=== PATIENT | male | born 1975 | race Caucasian/White ===

== ENCOUNTER 2017-08-06 09:12 | Emergency (ER) | payer MEDICAID, MEDICARE ==
--- NOTE | 2017-08-06 09:19 | ED ---
Back Pain - HPI Summary HPI Summary: 42 year old male presents with complains of back injury at work. He was seen in the ED and told he had a bulging disc. He has a referral to [facility] orthopedics in [place] and just needs a work note. - History of Current Complaint Stated Complaint: BACK INJURY Time Seen by Provider: 08/06/17 09:19 Hx Obtained From: Patient Onset/Duration: Sudden Onset Onset/Duration: Started Days Ago Timing: Constant Severity Initially: Moderate Severity Currently: Moderate - Allergies/Home Medications Allergies/Adverse Reactions: Allergies Allergy/AdvReac Type Severity Reaction Status Date / Time No Known Allergies Allergy Verified 08/06/17 09:23 Home Medications: Home Medications HYDROcodone/ACETAMIN 5-325 MG* [[place] 5-325 TAB*] 1 tab PO Q6H PRN 08/06/17 [ History Confirmed 08/06/17] Naproxen TAB* [Naprosyn 250 mg TAB*] 500 mg PO Q8H PRN 08/06/17 [History Confirmed 08/06/17] PMH/Surg Hx/FS Hx/Imm Hx Previously Healthy: Yes Endocrine/Hematology History: Denies: Hx Diabetes Cardiovascular History: Denies: Hx Hypertension, Hx Pacemaker/ICD History: Denies: Hx Renal Disease Sensory History: Denies: Hx Hearing Aid Psychiatric History: Denies: Hx Panic Disorder - Surgical History Surgery Procedure, Year, and Place: RIGHT hip replacement 01/2006; R knee SC[place] - Social History Alcohol Use: None Substance Use Type: Reports: None Smoking Status (MU): Former Smoker Review of Systems Constitutional: Negative Eyes: Negative ENT: Negative Cardiovascular: Negative Respiratory: Negative Gastrointestinal: Negative Genitourinary: Negative Positive: Other - back pain All Other Systems Reviewed And Are Negative: Yes Physical Exam Triage Information Reviewed: Yes Vital Signs Reviewed: Yes Appearance: Positive: Pain Distress Skin: Positive: Warm Eyes: Positive: Normal ENT: Positive: Normal ENT inspection Neck: Positive: Supple Respiratory/Lung Sounds: Positive: Clear to Auscultation Cardiovascular: Positive: Normal Abdomen Description: Positive: Nontender Musculoskeletal: Positive: Other - lower back pain Back Pain Course/Dx - Diagnoses Provider Diagnoses: Back pain Discharge - Discharge Plan Condition: Stable Disposition: HOME Prescriptions: Methocarbamol TAB* [Robaxin 500 MG TAB*] 500 mg PO TID PRN #30 tab PRN Reason: Pain Naproxen [Naproxen 500 mg] 500 mg PO Q8H PRN #30 tab PRN Reason: Pain Patient Education Materials: Low Back Strain (ED) Forms: *Work Release Referrals: Danii De Paz MD [Medical Doctor] - Additional Instructions: please f/u [facility] appointment
[2017-08-06 09:32] VITALS: BP 134/81
== END 2017-08-06 10:00 | disposition home or self-care (01) ==
LOC: UCCORT 09:12
DX: M54.9 Dorsalgia, unspecified (principal); Z87.891 Personal history of nicotine dependence
CPT/HCPCS: 99212; G0463

== ENCOUNTER 2017-08-30 10:42 | Emergency (ER) | payer OTHER ==
--- OUTSIDE RECORDS SUMMARY | 2017-08-30 11:08 | XMS REPORT ---
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 Unavailable Fariha Loza MD Primary Care Physician Unavailable Payers Type Date Identification Numbers Payment Provider Subscriber Commercial Policy Number: [id number] [employer] [place] [employer] Chris Whiting PayID: [id number] [address] [place] [address] Medicaid Policy Number: [id number] Medicaid Chris Whiting PayID: [id number] [address] [place] [address] Problems Description No Information Family History Date Family Member(s) Problem(s) Comments Father Diabetes Father Heart Disease Mother Heart Disease Mother Diabetes Social History Type Date Description Comments Cigarette Use Quit 19 Years Ago ETOH Use Rare Use Of Alcohol Recreational Drug Use Never Used Drugs Allergies, Adverse Reactions, Alerts Date Description Reaction Status Severity Comments 08/07/2017 NKDA active Medications Medication Date Status Form Strength Qnty SIG Indications Ordering Provider Ventolin HFA Active Aerosol 108(90Base) 2 puffs Unknown 00 mcg/Act every 4 hours as needed only Flovent HFA Active Aerosol Unknown 00 Vital Signs Date Vital Result Comment 08/07/2017 Weight 236.50 lb Height 69 inches 5'9" BMI (Body Mass Index) 34.9 kg/m2 BP Systolic 110 mmHg BP Diastolic 72 mmHg Heart Rate 68 /min O2 % BldC Oximetry 99 % Body Temperature 98.1 F Regina Score 17 Neck Circumference in inches 16.25 Pain Level 0 Results Description No Information Procedures Description No Information Plan of Care No Information Available
[2017-08-30 11:22] VITALS: BP 136/60
--- NOTE | 2017-08-30 11:35 | UC ---
Back Pain HPI - HPI Summary HPI Summary: Pt has history of back injury on 08/04/17 and has been seen by PCP, [facility], orthopedic provider and Dr. Dipika Jerry. Pt was given diagnosis of herniated sacral disc. Pt denies any recent injury or trauma but states as he was riding in car this morning pain in low back pain has worsened and now c/o bilateral radiating pain and numbness bilateral posterior legs. Pt has not taken any of the prescribed medications today. - History of Current Complaint Chief Complaint: UCBackPain Stated Complaint: BACK PAIN Time Seen by Provider: 08/30/17 11:12 Hx Obtained From: Patient Onset/Duration: Sudden Onset Timing: Constant Severity Initially: Moderate Severity Currently: Moderate Back Pain: Radiates To - bilateral posterior legs Character: Dull, Aching, Burning Aggravating Factor(s): Movement, Lifting, Bending, Walking Alleviating Factor(s): Nothing Associated Signs And Symptoms: Positive: Numbness, Tingling Related History: Similar Episode Dx As - herniated disc - Risk Factors AAA Risk Factors: Negative TAD Risk Factors: Negative Cauda Equina Risk Factors: Negative Epidural Abscess Risk Factors: Negative - Allergies/Home Medications Allergies/Adverse Reactions: Allergies Allergy/AdvReac Type Severity Reaction Status Date / Time No Known Allergies Allergy Verified 08/06/17 09:23 Home Medications: Home Medications Albuterol HFA INHALER* [Ventolin HFA Inhaler*] 1 - 2 puff INH Q4H PRN 08/30/17 [ History Confirmed 08/30/17] Fluticasone HFA 110 mcg(NF) [Flovent HFA 110 mcg(NF)] 2 puff INH BID 08/30/17 [ History Confirmed 08/30/17] PMH/Surg Hx/FS Hx/Imm Hx Previously Healthy: Yes - Surgical History Surgical History: Yes Surgery Procedure, Year, and Place: Right [place], 2006, [place] - Family History Known Family History: Positive: Cardiac Disease - Social History Occupation: Unemployed Lives: With Family Alcohol Use: Occasionally Substance Use Type: None Smoking Status (MU): Former Smoker Length of Time of Smoking/Using Tobacco: 2 1/2 PPD x 11 Years Have You Smoked in the Last Year: No When Did the Patient Quit Smoking/Using Tobacco: 1997 - Immunization History Most Recent Influenza Vaccination: Not the Season Review of Systems Constitutional: Negative Skin: Negative Eyes: Negative ENT: Negative Respiratory: Negative Cardiovascular: Negative Gastrointestinal: Negative Genitourinary: Negative Motor: Decreased ROM - low bacfk Neurovascular: Negative Musculoskeletal: Decreased ROM - low back, Myalgia Neurological: Negative Psychological: Negative Is Patient Immunocompromised?: No All Other Systems Reviewed And Are Negative: Yes Physical Exam Triage Information Reviewed: Yes Appearance: Pain Distress, Other: - unkempt Vital Signs: Initial Vital Signs Temp 97.9 F 08/30/17 11:09 Pulse 80 08/30/17 11:09 Resp 18 08/30/17 11:09 BP 136/60 08/30/17 11:09 Pulse Ox 99 08/30/17 11:09 Vital Signs Reviewed: Yes Eye Exam: Normal ENT Exam: Normal Neck exam: Normal Respiratory Exam: Normal Cardiovascular Exam: Normal Musculoskeletal Exam: Other Musculoskeletal: Positive: ROM Limited @ - low back Neurological Exam: Normal Neurological: Positive: Other: - hyperreflexes bilateral patella Psychological Exam: Normal Skin Exam: Normal Back Pain Course/Dx - Differential Dx/Diagnosis Differential Diagnosis/HQI/PQRI: Cauda Equina Syndrome, Epidural Abscess, Herniated Disc Provider Diagnoses: worsening of herniated disc? sciatica. Pt was advised to go to Emergency Room immediately. Discharge - Discharge Plan Condition: Stable Disposition: HOME Prescriptions: predniSONE TAB* [Deltasone TAB*] 40 mg PO DAILY #8 tab Patient Education Materials: Sciatica (ED), Lumbar Radiculopathy (ED) Referrals: RONALD Carlson [Primary Care Provider] - If Needed Additional Instructions: It is recommended that if your symptoms do not improve with the medications provided for you at first onset of injury and with the subsequent follow up visit, that you seek care at the closest Emergency Room.
[2017-08-30] MEDS ORDERED: predniSONE TAB* 20 MG PO ONE (11:38)
== END 2017-08-30 11:59 | disposition home or self-care (01) ==
LOC: UCCORT 10:42
DX: M54.9 Dorsalgia, unspecified (principal); M53.3 Sacrococcygeal disorders, not elsewhere classified; Z96.641 Presence of right artificial hip joint; Z98.1 Arthrodesis status; Z87.891 Personal history of nicotine dependence
CPT/HCPCS: 99212; G0463; J7512

== ENCOUNTER 2018-06-12 12:58 | Emergency (ER) | payer SELFPAY ==
[2018-06-12 13:19] VITALS: BP 124/60
[2018-06-12] MEDS ORDERED: Ibuprofen TAB* 800 MG PO ONE (14:49)
--- NOTE | 2018-06-12 14:53 | UC ---
Lower Extremity/Ankle HPI - HPI Summary HPI Summary: slipped on wet floor at [facility] about 3 hours ago, feeling pop in right knee and right hip, with moderately severe pain following, in the right groin and knee. Difficulty with weight bearing. No analgesics used. He is one month post right knee arthroscopy and 12 years post right hip replacement. - History of Current Complaint Chief Complaint: UCLowerExtremity Stated Complaint: S/P FALL RIGHT KNEE/HIP Time Seen by Provider: 06/12/18 14:40 Hx Obtained From: Patient Onset/Duration: Sudden Onset, Lasting Hours Severity Initially: Moderate Severity Currently: Moderate Pain Intensity: 8 Aggravating Factor(s): Standing, Ambulation Alleviating Factor(s): Rest Able to Bear Weight: Yes - Risk Factors Gout Risk Factors: Obesity - Allergies/Home Medications Allergies/Adverse Reactions: Allergies Allergy/AdvReac Type Severity Reaction Status Date / Time cefazolin [From Ancef] Allergy Severe Swelling Verified 06/12/18 13:15 Of Face,Lips,& Throat cephalexin [From Keflex] Allergy Severe Swelling Verified 06/12/18 13:15 Of Face,Lips,& Throat Home Medications: Home Medications Ketoconazole 2 % CREAM (NF) [Nizoral 2% CREAM (NF)] 1 applic TOPICAL DAILY 06/12 [History Confirmed 06/12/18] PMH/Surg Hx/FS Hx/Imm Hx - Additional Past Medical History Additional PMH: morbid obesity - Surgical History Surgical History: Yes Surgery Procedure, Year, and Place: Right [place], 2006, [place]. 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 Lives: With Family Alcohol Use: None Substance Use Type: None Smoking Status (MU): Former Smoker Length of Time of Smoking/Using Tobacco: 2 1/2 PPD x 11 Years Have You Smoked in the Last Year: No When Did the Patient Quit Smoking/Using Tobacco: 1997 - Immunization History Most Recent Influenza Vaccination: Not the 2017/2017 Season Review of Systems Musculoskeletal: Arthralgia, Myalgia Neurological: Numbness - has some paresthesias right lateral thigh Is Patient Immunocompromised?: No All Other Systems Reviewed And Are Negative: Yes Physical Exam Triage Information Reviewed: Yes Appearance: Pain Distress - moderate, seated in wheelchair., Obese Vital Signs: Initial Vital Signs Temp 97.7 F 06/12/18 13:08 Pulse 81 06/12/18 13:08 Resp 18 06/12/18 13:08 BP 124/60 06/12/18 13:08 Pulse Ox 99 06/12/18 13:08 Respiratory: Positive: Lungs clear, Normal breath sounds Cardiovascular: Positive: RRR, No Murmur Musculoskeletal: Positive: ROM Limited @ - right knee with limited flexion, small effusion Neurological: Positive: Alert, Muscle Tone Normal Diagnostics - Laboratory Diagnostic Studies Completed/Ordered: xray right knee normal per , mild degenerative change per Dr. Ohara. xray right hip with normal prosthesis per . No hardware failure per Dr. Granados. Lower Extremity Course/Dx - Course Course Of Treatment: rest, ice, nsaid's for pain. Follow up with ortho if not seeing improvement in 3 to 4 days. - Differential Dx/Diagnosis Differential Diagnosis/HQI/PQRI: Sprain, Strain Provider Diagnoses: strain right groin and right knee secondary to trauma Discharge - Sign-Out/Discharge Documenting (check all that apply): Patient Departure All imaging exams completed and their final reports reviewed: Yes - Discharge Plan Condition: Stable Disposition: HOME Patient Education Materials: Knee Pain (ED) Referrals: Fariha Loza MD [Primary Care Provider] - Additional Instructions: Today's injury likely caused a strain in the ligaments around the hip and knee, but there is no evidence of fracture. Ensure that you ice the knee and groin for 20 minutes every 2 to 3 hours today and tomorrow. Use crutches as needed. Use ibuprofen 800mg three times daily for relief of pain. Follow up with your orthopedist early next week if you are not seeing improvement. - Billing Disposition and Condition Condition: STABLE Disposition: Home
[2018-06-12] MEDS: Ibuprofen TAB* 400 MG PO ONE (14:55)
--- NOTE | 2018-06-12 15:19 | RAD ---
Indication: RIGHT knee pain post slipping. 1 month post arthroscopic debridement. Comparison: December 23, 2017 Technique: RIGHT knee: AP, tunnel, crosstable lateral, sunrise views. REPORT AND IMPRESSION: #. Negative for joint effusion, fracture, or malalignment. #. Mild osteoarthritis with mild lateral joint space narrowing. #. Unremarkable soft tissue contours.
--- NOTE | 2018-06-12 15:45 | RAD ---
HISTORY: pain post slipping on wet floor COMPARISONS: None VIEWS: 4 , Frontal view of the pelvis with frontal and frog-leg views of the right hip FINDINGS: BONE DENSITY: Normal. BONES: The patient is status post right hip arthroplasty. There is no hardware failure or osteolysis. JOINTS: The patient is status post right hip arthroplasty ALIGNMENT: There is no dislocation. SOFT TISSUES: Unremarkable. OTHER FINDINGS: None. IMPRESSION: STATUS POST RIGHT HIP ARTHROPLASTY
== END 2018-06-12 15:56 | disposition home or self-care (01) ==
LOC: UCCORT 12:58
DX: S83.91XA Sprain of unspecified site of right knee, initial encounter (principal); W01.0XXA Fall on same level from slipping, tripping and stumbling without subsequent striking against object, initial encounter; Y92.512 Supermarket, store or market as the place of occurrence of the external cause; Z88.1 Allergy status to other antibiotic agents; Z87.891 Personal history of nicotine dependence; S76.811A Strain of other specified muscles, fascia and tendons at thigh level, right thigh, initial encounter
CPT/HCPCS: 99212; A9270-GY; G0463

== ENCOUNTER 2019-01-08 13:28 | Emergency (ER) | payer OTHER, MEDICAID | END 2019-01-08 13:59 | disposition left against medical advice (07) | LOC: UCCORT 13:28 | DX: R09.89 Other specified symptoms and signs involving the circulatory and respiratory systems (principal); R05 Cough; Z53.21 Procedure and treatment not carried out due to patient leaving prior to being seen by health care provider ==

== ENCOUNTER 2019-01-10 15:59 | Emergency (ER) | payer OTHER, MEDICAID ==
[2019-01-10 16:43] VITALS: BP 118/70
--- NOTE | 2019-01-10 17:09 | UC ---
Respiratory Complaint HPI - HPI Summary HPI Summary: C/O wheezing cough with sore throat with fevers/ chills and frontal sinus pain. - History of Current Complaint Chief Complaint: UCRespiratory Stated Complaint: COUGH, FEVERISH Hx Obtained From: Patient Onset/Duration: Gradual Onset, Lasting Weeks - 1, Worse Since - last 2 days. Timing: Constant Severity Initially: Mild Severity Currently: Mild Pain Intensity: 3 Character: Cough: Nonproductive Aggravating Factors: Deep Breaths, Recumbent Position Alleviating Factors: Bronchodilator Associated Signs And Symptoms: Positive: Fever, Chills, Wheezing, Nasal Congestion, Hoarseness, Sinus Discomfort Related History: Seasonal Allergies - Allergies/Home Medications Allergies/Adverse Reactions: Allergies Allergy/AdvReac Type Severity Reaction Status Date / Time cefazolin [From Ancef] Allergy Severe Swelling Verified 01/10/19 16:29 Of Face,Lips,& Throat cephalexin [From Keflex] Allergy Severe Swelling Verified 01/10/19 16:29 Of Face,Lips,& Throat Home Medications: Home Medications D-Methorphan/PE/Acetaminophen [Vicks Dayquil Liquid] 1 liq PO BID PRN 01/10/19 [ History Confirmed 01/10/19] Dm/PE/Acetaminophen/Doxylamine [Vicks Dayquil-Nyquil Cold-Flu] 1 mis PO QPM PRN 01/10/19 [History Confirmed 01/10/19] Hemorrhoidal SUPP* [Preparation H Supp*] 1 supp .SEE ORDER SEE INSTRUCTIONS PRN 01/10/19 [History Confirmed 01/10/19] Omeprazole 20 mg PO DAILY 01/10/19 [History Confirmed 01/10/19] Phenyleph/Mineral Oil/Petrolat [Preparation H Ointment] 1 oin [place] SEE INSTRUCTIONS PRN 01/10/19 [History Confirmed 01/10/19] Psorasis Scalp Gel 1 applic TOPICAL SEE INSTRUCTIONS PRN 01/10/19 [History Confirmed 01/10/19] Psorisis Tab 1 dose PO SEE INSTRUCTIONS PRN 01/10/19 [History Confirmed 01/10/19 ] PMH/Surg Hx/FS Hx/Imm Hx Cardiovascular History: Hypertension Respiratory History: Asthma - Surgical History Surgical History: Yes Surgery Procedure, Year, and Place: Right [place], 2006, [place]. Right knee arthroscopy; left foot surgery [facility] 2017 - Family History Known Family History: Positive: Cardiac Disease, Diabetes Negative: Hypertension - Social History Occupation: Employed Full-time Lives: With Family Alcohol Use: Occasionally Substance Use Type: None Smoking Status (MU): Former Smoker Length of Time of Smoking/Using Tobacco: 2 1/2 PPD x 11 Years Have You Smoked in the Last Year: No When Did the Patient Quit Smoking/Using Tobacco: 1997 - Immunization History Most Recent Influenza Vaccination: Not the Season Review of Systems All Other Systems Reviewed And Are Negative: Yes Constitutional: Positive: Fever, Chills, Fatigue ENT: Positive: Sore Throat, Nasal Discharge, Sinus Pain/Tenderness Respiratory: Positive: Shortness Of Breath, Cough Is Patient Immunocompromised?: No Physical Exam Triage Information Reviewed: Yes Appearance: No Pain Distress, Ill-Appearing, Obese Vital Signs: Initial Vital Signs Temp 98.4 F 01/10/19 16:38 Pulse 100 01/10/19 16:38 Resp 16 01/10/19 16:38 BP 118/70 01/10/19 16:38 Pulse Ox 99 01/10/19 16:38 Vital Signs Reviewed: Yes Eyes: Positive: Conjunctiva Clear ENT: Positive: Pharynx normal, Nasal congestion, TMs normal, Hoarse voice, Sinus tenderness Neck exam: Normal Respiratory: Positive: Wheezing - expiratory wheezes Cardiovascular Exam: Normal Musculoskeletal Exam: Normal Neurological Exam: Normal Psychological Exam: Normal Skin Exam: Normal Respiratory Course/Dx - Differential Dx/Diagnosis Differential Diagnosis/HQI/PQRI: Asthma, Lower Resp Infection, Sinusitis Provider Diagnosis: Upper respiratory infection with cough and congestion, Sinusitis, Asthma exacerbation Discharge - Sign-Out/Discharge Documenting (check all that apply): Patient Departure All imaging exams completed and their final reports reviewed: No Studies - Discharge Plan Condition: Stable Disposition: HOME Prescriptions: Albuterol HFA INHALER* [Ventolin HFA Inhaler*] 2 puff INH Q4HR PRN #1 mdi PRN Reason: Sob/Wheezing DOXYcycline CAP(*) [DOXYcycline 100MG CAP(*)] 100 mg PO BID #20 cap Fluticasone Propionate [Flovent Hfa] 10.6 gm IH BID #1 aer.w.adap Montelukast Sodium TAB* [Singulair 10 MG TAB*] 10 mg PO BEDTIME #30 tab predniSONE TAB* [Deltasone TAB*] 50 mg PO DAILY #7 tab Patient Education Materials: Upper Respiratory Infection (ED), Wheezing (ED), Sinusitis (ED), Doxycycline (By mouth) Referrals: Fariha Loza MD [Primary Care Provider] - Additional Instructions: NASAL SPRAYS AND DROPS: Afrin in the PUMP/ MIST bottle (Get generic 12 hours nasal decongestant spray). Tilt your head down and look at the floor while doing a strong sniff with the spray. Decongestant nasal sprays and drops often give dramatic relief from congestion. They are often recommended for patients with sinus infection to assist with sinus drainage. Persons with high blood pressure should consult the doctor before using these nasal sprays. Afrin and Reji-Synephrine are common hqkf-tzl-[id number] preparations. They should not be used for more than five days, as "rebound" congestion can occur - - the congestion flares as the drug wears off. A way of dealing with this rebound congestion problem is to medicate only one nostril each time, allowing the other nostril to recover from the medicine' s effects. When you no longer need the drug during the day, spray only one nostril each night. This helps you sleep well without severe rebound congestion. Call the doctor if you develop severe headache, palpitations, or chest pain. - Billing Disposition and Condition Condition: STABLE Disposition: Home
== END 2019-01-10 17:44 | disposition home or self-care (01) ==
LOC: UCCORT 15:59
DX: J06.9 Acute upper respiratory infection, unspecified (principal); J32.9 Chronic sinusitis, unspecified; J45.901 Unspecified asthma with (acute) exacerbation; I10 Essential (primary) hypertension; Z87.891 Personal history of nicotine dependence; Z88.8 Allergy status to other drugs, medicaments and biological substances; Z79.899 Other long term (current) drug therapy
CPT/HCPCS: 99212; G0463

== ENCOUNTER 2019-05-18 14:01 | Emergency (ER) | payer MEDICAID, OTHER ==
[2019-05-18 14:25] VITALS: BP 136/76
--- NOTE | 2019-05-18 14:54 | UC ---
Back Pain HPI - History of Current Complaint Chief Complaint: UCBackPain Stated Complaint: WC-BACK INJURY Time Seen by Provider: 05/18/19 14:09 Hx Obtained From: Patient Onset/Duration: Sudden Onset, Lasting Minutes, Still Present Severity Initially: Severe Severity Currently: Severe Pain Intensity: 8 Pain Scale Used: 0-10 Numeric Back Pain: Is Diffuse - entire spine, Radiates To - lower back Character: Sharp, Spasmodic, Stiffness, Burning Aggravating Factor(s): Movement Alleviating Factor(s): Rest Associated Signs And Symptoms: Positive: Weakness, Pain with Weight Bearing. Negative: Numbness, Bladder Incontinence, Bowel Incontinence - Allergies/Home Medications Allergies/Adverse Reactions: Allergies Allergy/AdvReac Type Severity Reaction Status Date / Time cefazolin [From Ancef] Allergy Severe Swelling Verified 05/18/19 14:20 Of Face,Lips,& Throat cephalexin [From Keflex] Allergy Severe Swelling Verified 05/18/19 14:20 Of Face,Lips,& Throat Home Medications: Home Medications Adalimumab (NF) [Humira Pen (NF)] mg SUBCUT Q8D 05/18/19 [History] PMH/Surg Hx/FS Hx/Imm Hx Previously Healthy: Yes - Surgical History Surgical History: Yes Surgery Procedure, Year, and Place: Right [place], 2006, [place]. Right knee arthroscopy; left foot surgery [facility] 2017 - Family History Known Family History: Positive: Cardiac Disease, Diabetes, Non-Contributory Negative: Hypertension - Social History Alcohol Use: Occasionally Substance Use Type: None Smoking Status (MU): Former Smoker Length of Time of Smoking/Using Tobacco: 2 1/2 PPD x 11 Years Have You Smoked in the Last Year: No When Did the Patient Quit Smoking/Using Tobacco: 1997 - Immunization History Most Recent Influenza Vaccination: Not the 2016/2017 Season Review of Systems All Other Systems Reviewed And Are Negative: Yes Constitutional: Positive: Negative Motor: Positive: Decreased ROM, Weakness Musculoskeletal: Positive: Arthralgia, Decreased ROM, Myalgia Neurological: Positive: Weakness Psychological: Positive: Negative Is Patient Immunocompromised?: No Physical Exam Triage Information Reviewed: Yes Appearance: Well-Appearing, No Pain Distress, Well-Nourished Vital Signs: Initial Vital Signs Temp 98.8 F 05/18/19 14:17 Pulse 96 05/18/19 14:17 Resp 18 05/18/19 14:17 BP 136/76 05/18/19 14:17 Pulse Ox 97 05/18/19 14:17 Vital Signs Reviewed: Yes Eyes: Positive: Conjunctiva Clear ENT: Positive: Hearing grossly normal Neck: Positive: Supple, Tenderness @ - entire cervical spine severe, mild thoracic spine, moderate over lumbar spine Musculoskeletal: Positive: Strength Intact, ROM Intact, Other: - unable to stand upright without significant pain. negative rhomberg, but patient feels unsteady, sensation will fall over. Neurological: Positive: Other: - negative rhomberg, but patient feels unsteady, sensation will fall over. Weakness with going from sitting to standing position Psychological Exam: Normal Skin: Negative: Rashes, Breakdown Back Pain Course/Dx - Course Course Of Treatment: Due to severity of symptoms, patient was transferred to [place] [facility]. Discussed ambo vs cab, patient did not want to drive back to get his car, will drive. Patient discussed with TRACY Grajeda at [place]. - Differential Dx/Diagnosis Differential Diagnosis/HQI/PQRI: Strain, Sprain Provider Diagnosis: Back pain Discharge ED - Sign-Out/Discharge Documenting (check all that apply): Patient Departure All imaging exams completed and their final reports reviewed: No Studies - Discharge Plan Condition: Guarded Disposition: HOME Patient Education Materials: Back Pain (ED) Referrals: Fariha Loza MD [Primary Care Provider] - Additional Instructions: Please go to ER for further evaluation, imaging. - Billing Disposition and Condition Condition: GUARDED Disposition: Home
== END 2019-05-18 14:53 | disposition home or self-care (01) ==
LOC: UCCORT 14:01
DX: M54.9 Dorsalgia, unspecified (principal); Z87.891 Personal history of nicotine dependence
CPT/HCPCS: 99212; G0463